=== PATIENT | male | born 1950 | race Caucasian/White ===

== ENCOUNTER 2022-12-05 18:52 | Emergency (ER) | payer MEDICARE ==
--- NOTE | 2022-12-05 19:03 | ERPHSYRPT ---
- History of Present Illness Time Seen by Provider: 12/05/22 19:02 Source: patient, family Exam Limitations: no limitations Physician History: This is a 72-year-old white male patient who is living with family members who have tested positive for COVID as recent as yesterday. He himself began having some symptoms yesterday of headache, cough, sore throat muscle aches and low- grade fever. He denies chest pain and he denies shortness of breath at this time. His room air oxygenation on arrival to the emergency department is 95%. Patient has a history of hyperlipidemia, coronary artery disease (cardiac stents) on Plavix, diabetes and hypertension. He has had no vomiting or diarrhea. He denies abdominal pain. Timing/Duration: yesterday Severity: mild (To moderate) Associated Symptoms: denies symptoms Allergies/Adverse Reactions: No Known Drug Allergies Allergy (Verified 12/05/22 19:14) Home Medications: Clopidogrel Bisulfate [Plavix] 75 mg PO DAILY 12/05/22 [History] Glipizide [Glipizide ER] 5 mg PO DAILY 12/05/22 [History] Metformin HCl 500 mg [Glucophage 500 MG] 500 mg PO BID 12/05/22 [History] Metoprolol Tartrate 50 mg [Lopressor 50 MG] 50 mg PO BID 12/05/22 [History] Rosuvastatin Calcium 40 mg PO DAILY 12/05/22 [History] Travel Risk - International Travel Have you traveled outside of the country in past 3 weeks: No - Coronavirus Screening Are you exhibiting any of the following symptoms?: No Close contact with a COVID-19 positive Pt in past 14-21 Days: No - Review of Systems Constitutional: Fever, Weakness (Low-grade) Eyes: No Symptoms Ears, Nose, & Throat: Throat Pain Respiratory: Cough Cardiac: No Symptoms Abdominal/Gastrointestinal: Nausea, No Abdominal Pain, No Vomiting, No Diarrhea Genitourinary Symptoms: No Symptoms Musculoskeletal: Arthralgias, Myalgias Neurological: Headache Psychological: No Symptoms Endocrine: No Symptoms Hematologic/Lymphatic: No Symptoms Immunological/Allergic: No Symptoms All Other Systems: Reviewed and Negative - Past Medical History Pertinent Past Medical History: Yes - Past Surgical History Past Surgical History: Yes - Nursing Vital Signs Nursing Vital Signs: Initial Vital Signs Temperature 99.2 F 12/05/22 19:15 Pulse Rate 96 H 12/05/22 19:15 Respiratory Rate 22 12/05/22 19:15 Blood Pressure 143/87 12/05/22 19:15 O2 Sat by Pulse Oximetry 93 L 12/05/22 19:15 Pain Scale Pain Intensity 9 - Physical Exam General Appearance: no apparent distress, alert, anxiety Eye Exam: PERRL/EOMI, eyes nml inspection Ears, Nose, Throat Exam: normal ENT inspection, moist mucous membranes Neck Exam: normal inspection, non-tender, supple, full range of motion Respiratory Exam: normal breath sounds, lungs clear, airway intact, No chest tenderness, No respiratory distress Cardiovascular Exam: regular rate/rhythm, normal heart sounds, normal peripheral pulses Gastrointestinal/Abdomen Exam: soft, normal bowel sounds, tenderness Rectal Exam: not done Back Exam: normal inspection, normal range of motion, No CVA tenderness, No vertebral tenderness Extremity Exam: normal inspection, normal range of motion, pelvis stable Neurologic Exam: alert, oriented x 3, 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, 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, normal mood/affect, nml cerebellar function, nml station & gait, sensation nml Skin Exam: normal color, warm, dry Lymphatic Exam: No adenopathy SpO2 Interpretation: borderline oxygenation O2 Delivery: Room Air - Course Nursing assessment & vital signs reviewed: Yes EKG Interpreted by Me: RATE (96), Sinus Rhythm, Left [place] Deviation, NORMAL INTERVALS, NORMAL QRS, NORMAL ST-T, Other (No acute ischemic changes on today's twelve-lead EKG) Ordered Tests: Active Orders 24 hr Category Date Time Status 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 12/05/22 19:12 Active EKG-ER Only STAT Care 12/05/22 19:18 Active IV Insertion STAT Care 12/05/22 19:12 Active HEAD WITHOUT CONTRAST [CT] Stat Exams 12/05/22 20:46 Taken BLOOD CULTURE Stat Lab 12/05/22 19:45 Received CBC W DIFF Stat Lab 12/05/22 19:49 Completed CMP Stat Lab 12/05/22 19:49 Completed [place] Screen Stat Lab 12/05/22 19:49 Completed UA W/RFX UR CULTURE Stat Lab 12/05/22 19:49 Completed Medication Summary Discontinued Medications Generic Name Dose Route Start Last Admin Trade Name Freq PRN Reason Stop Dose Admin Hydrocodone Bitart/Acetaminophen 10 ml 12/05/22 19:34 12/05/22 19:41 Hydrocodone/Acetaminophen 5 Ml Udcup PO 12/05/22 19:35 10 ml STAT STA Administration Hydrocodone Bitart/Acetaminophen Confirm 12/05/22 19:39 Hydrocodone/Acetaminophen 5 Ml Udcup Administered 12/05/22 19:40 Dose 10 ml .ROUTE .STK-MED ONE Sodium Chloride 1,000 mls @ 999 mls/hr 12/05/22 19:12 12/05/22 20:43 Sodium Chloride 0.9% 1000 Ml IV 12/05/22 20:12 Infused .Q1H1M STA Infusion Sodium Chloride Confirm 12/05/22 19:39 Sodium Chloride 0.9% 1000 Ml Administered 12/05/22 19:40 Dose 1,000 mls @ ud .ROUTE .STK-MED ONE Morphine Sulfate 2 mg 12/05/22 20:46 12/05/22 20:50 Morphine Sulfate 2 Mg/Ml Inj IV 12/05/22 20:47 2 mg STAT ONE Administration Morphine Sulfate Confirm 12/05/22 20:48 Morphine Sulfate 2 Mg/Ml Inj Administered 12/05/22 20:49 Dose 2 mg .ROUTE .STK-MED ONE Ondansetron HCl 4 mg 12/05/22 19:13 12/05/22 19:41 Ondansetron Hcl 4 Mg/2 Ml Vial IV 12/05/22 19:14 4 mg STAT ONE Administration Ondansetron HCl Confirm 12/05/22 19:39 Ondansetron Hcl 4 Mg/2 Ml Vial Administered 12/05/22 19:40 Dose 4 mg .ROUTE .STK-MED ONE Lab/Rad Data: Laboratory Result Diagrams 12/05/22 19:49 12/05/22 19:49 Laboratory Results 12/05/22 12/05/22 12/05/22 Range/Units 19:49 19:49 19:49 WBC (4.0-10.5) x10^3/uL RBC (4.1-5.6) x10^6/uL Hgb (12.5-18.0) g/dL Hct (42-50) % MCV (78-100) fL MCH (26-32) pg MCHC (32-36) g/dL RDW (11.5-14.0) % Plt Count (150-450) x10^3/uL MPV (7.5-11.0) fL Gran % (36.0-66.0) % Immature Gran % (Auto) (0.00-0.4) % Nucleat RBC Rel Count (0.00-0.1) % Eos # (Auto) (0-0.5) x10^3/uL Immature Gran # (Auto) (0.00-0.03) x10^3u/L Absolute Lymphs (auto) (1.0-4.6) x10^3/uL Absolute Monos (auto) (0.0-1.3) x10^3/uL Absolute Nucleated RBC (0.00-0.01) x10^3u/L Lymphocytes % (24.0-44.0) % Monocytes % (0.0-12.0) % Eosinophils % (0.00-5.0) % Basophils % (0.0-0.4) % Absolute Granulocytes (1.4-6.9) x10^3/uL Basophils # (0-0.4) x10^3/uL Sodium (137-145) mmol/L Potassium (3.5-5.1) mmol/L Chloride (98-107) mmol/L Carbon Dioxide (22-30) mmol/L Anion Gap (5-15) MEQ/L BUN (9-20) mg/dL Creatinine (0.66-1.25) mg/dL Estimated GFR ML/MIN Glucose (74-106) mg/dL Calcium (8.4-10.2) mg/dL Total Bilirubin (0.2-1.3) mg/dL AST (17-59) U/L ALT (0-50) U/L Alkaline Phosphatase (38-126) U/L Serum Total Protein (6.3-8.2) g/dL Albumin (3.5-5.0) g/dL Urine Color (Yellow) Urine Appearance (Clear) Urine pH (4.6-8.0) Ur Specific [place] (1.005-1.030) Urine Protein (Negative) Urine Glucose (UA) (Negative) mg/dL Urine Ketones (Negative) Urine Blood (Negative) Urine Nitrite (Negative) Urine Bilirubin (Negative) Urine Urobilinogen (0.2) mg/dL Ur Leukocyte Esterase (Negative) U Hyaline Cast (Auto) (0-2) /LPF Urine Microscopic RBC (0-5) /HPF Urine Microscopic WBC (0-5) /HPF Ur Epithelial Cells (None Seen) /HPF Urine Bacteria (None Seen) /HPF Urine Culture Reflexed (NO) Monoscreen NEGATIVE (Negative) Influenza Type A Ag NEGATIVE (NEGATIVE) Influenza Type B Ag NEGATIVE (NEGATIVE) RSV (PCR) NEGATIVE (Negative) SARS-CoV-2 (PCR) POSITIVE A (NEGATIVE) Group A Strep Antibody NOT DETECTED (NEGATIVE) 12/05/22 12/05/22 12/05/22 Range/Units 19:49 19:49 19:49 WBC 8.1 (4.0-10.5) x10^3/uL RBC 4.54 (4.1-5.6) x10^6/uL Hgb 13.6 (12.5-18.0) g/dL Hct 42.9 (42-50) % MCV 94.5 (78-100) fL MCH 30.0 (26-32) pg MCHC 31.7 L (32-36) g/dL RDW 13.1 (11.5-14.0) % Plt Count 182 (150-450) x10^3/uL MPV 9.7 (7.5-11.0) fL Gran % 67.7 H (36.0-66.0) % Immature Gran % (Auto) 0.2 (0.00-0.4) % Nucleat RBC Rel Count 0.0 (0.00-0.1) % Eos # (Auto) 0.07 (0-0.5) x10^3/uL Immature Gran # (Auto) 0.02 (0.00-0.03) x10^3u/L Absolute Lymphs (auto) 1.38 (1.0-4.6) x10^3/uL Absolute Monos (auto) 1.10 (0.0-1.3) x10^3/uL Absolute Nucleated RBC 0.00 (0.00-0.01) x10^3u/L Lymphocytes % 17.1 L (24.0-44.0) % Monocytes % 13.6 H (0.0-12.0) % Eosinophils % 0.9 (0.00-5.0) % Basophils % 0.5 (0.0-0.4) % Absolute Granulocytes 5.47 (1.4-6.9) x10^3/uL Basophils # 0.04 (0-0.4) x10^3/uL Sodium 139 (137-145) mmol/L Potassium 4.5 (3.5-5.1) mmol/L Chloride 107 (98-107) mmol/L Carbon Dioxide 22 (22-30) mmol/L Anion Gap 14.4 (5-15) MEQ/L BUN 9 (9-20) mg/dL Creatinine 0.93 (0.66-1.25) mg/dL Estimated GFR > 60.0 ML/MIN Glucose 126 H (74-106) mg/dL Calcium 8.8 (8.4-10.2) mg/dL Total Bilirubin 0.50 (0.2-1.3) mg/dL AST 45 (17-59) U/L ALT 39 (0-50) U/L Alkaline Phosphatase 71 (38-126) U/L Serum Total Protein 7.4 (6.3-8.2) g/dL Albumin 4.1 (3.5-5.0) g/dL Urine Color Yellow (Yellow) Urine Appearance Clear (Clear) Urine pH 5.0 (4.6-8.0) Ur Specific [place] 1.020 (1.005-1.030) Urine Protein Trace A (Negative) Urine Glucose (UA) Negative (Negative) mg/dL Urine Ketones Negative (Negative) Urine Blood Negative (Negative) Urine Nitrite Negative (Negative) Urine Bilirubin Negative (Negative) Urine Urobilinogen 0.2 (0.2) mg/dL Ur Leukocyte Esterase Negative (Negative) U Hyaline Cast (Auto) NONE SEEN (0-2) /LPF Urine Microscopic RBC 0-2 (0-5) /HPF Urine Microscopic WBC 0-2 (0-5) /HPF Ur Epithelial Cells None Seen (None Seen) /HPF Urine Bacteria None Seen (None Seen) /HPF Urine Culture Reflexed NO (NO) Monoscreen (Negative) Influenza Type A Ag (NEGATIVE) Influenza Type B Ag (NEGATIVE) RSV (PCR) (Negative) SARS-CoV-2 (PCR) (NEGATIVE) Group A Strep Antibody (NEGATIVE) - Progress Progress: improved Progress Note: 12/05/22 21:48 CT scan of the head without contrast shows no acute intracranial abnormality. This patient's medical issues of moderate complexity. This is based on the patient's complaint, past medical history, review of patient's medicines, history present illness, and physical findings on examination. Based on that we performed blood draws, viral swabs, obtain a urinalysis, provided him with IV fluids, obtaining twelve-lead EKG and performed a CT scan of the patient's head. Patient's diagnosis is headache and COVID-19 infection. I reviewed all the results with the patient and discharge plan includes drinking plenty of fluids, taking hydrocodone elixir as needed for headache and cough control. Counseled pt/family regarding: lab results, diagnosis, need for follow-up, rad results Medical Desision Making - Independent Historian Additional History obtained from: Family - Discussion of managment Reviewed:: Test results Agreed on:: Treatment plan, need for follow-up - Diagnostic Testing Diagnostic test were ordered, analyzed, and reviewed by me: Yes Radiological Interpretation: Reviewed by me, Teleradiologist Report - Risk of complications Low Risk: Low risk of morbidity from additional dx testing or treatment - Departure Departure Disposition: Home Clinical Impression: COVID-19, Headache Condition: Stable Critical Care Time: No Referrals: ANTONIA JANE MD [Primary Care Provider] - Follow up/PCP as directed Additional Instructions: Drink plenty fluids. Take your medications as prescribed. Follow-up with your primary care physician for further evaluation and management in 7 to 10 days. Return to the emergency department if symptoms worsen. Prescriptions: Hydrocodone/Acetaminophen [Hydrocodone-Acetamn 7.5-325/15] 10 ml PO Q8H PRN PRN #120 ml MDD 30 ml PRN Reason: Cough
[2022-12-05] MEDS ORDERED: Sodium Chloride 0.9% 1000 ML 1,000 ML IV STA (19:12)
[2022-12-05] MEDS ORDERED: Zofran 4 MG/2 ML VIAL IV ONE (19:13)
[2022-12-05] MEDS ORDERED: HYDROCODONE-ACETAMIN 2.5-108/5 ML SOLUTION PO STA (19:34)
[2022-12-05] MEDS ORDERED: Zofran 4 MG/2 ML VIAL ONE (19:39)
[2022-12-05] MEDS ORDERED: Sodium Chloride 0.9% 1000 ML 1,000 ML ONE (19:39)
[2022-12-05] MEDS ORDERED: HYDROCODONE-ACETAMIN 2.5-108/5 ML SOLUTION ONE (19:39)
[2022-12-05 19:52] LABS: Absolute Neutrophil Ct (ANC) 5.47 x10^3/uL (1.4-6.9); BASOPHIL % 0.5 % (0.0-0.4); Basophil (Absolute #) 0.04 x10^3/uL (0-0.4); Eosinophil % 0.9 % (0.00-5.0); Eosinophil (Absolute #) 0.07 x10^3/uL (0-0.5); Hematocrit 42.9 % (42-50); Hemoglobin 13.6 g/dL (12.5-18.0); IMMATURE GRAN # 0.02 x10^3u/L (0.00-0.03); IMMATURE GRAN % 0.2 % (0.00-0.4); Lymphocyte (Absolute #) 1.38 x10^3/uL (1.0-4.6); Lymphocytes % 17.1 % (24.0-44.0); Mean Cell Volume 94.5 fL (78-100); Mean Corpuscular Hgb Concent. 31.7 g/dL (32-36); Mean Platelet Volume 9.7 fL (7.5-11.0); Monocytes % 13.6 % (0.0-12.0); Neutrophil % 67.7 % (36.0-66.0); Platelet Count 182 x10^3/uL (150-450); Red Blood Count 4.54 x10^6/uL (4.1-5.6); Red Cell Distribution Width 13.1 % (11.5-14.0); White Blood Count 8.1 x10^3/uL (4.0-10.5)
[2022-12-05 19:59] LABS: Appearance Clear (Clear); Bacteria None Seen /HPF (None Seen); Bilirubin Negative (Negative); Blood Negative (Negative); Epithelial Cells None Seen /HPF (None Seen); Glucose, Urine Negative (Negative); Hyaline Casts NONE SEEN /LPF (0-2); Ketones Negative (Negative); Leukocyte Esterase Negative (Negative); Nitrite Negative (Negative); Protein,Urine Dip Trace (Negative); RBC 0-2 /HPF (0-5); Urobilinogen 0.2 mg/dL (0.2); WBC 0-2 /HPF (0-5)
[2022-12-05 20:00] LABS: ADD URINE CULTURE? NO (NO)
[2022-12-05 20:03] LABS: ALBUMIN 4.1 g/dL (3.5-5.0); ALKALINE PHOSPHATASE 71 U/L (38-126); ANION GAP 14.4 MEQ/L (5-15); BLOOD UREA NITROGEN 9 mg/dL (9-20); CHLORIDE 107 mmol/L (98-107); Calcium 8.8 mg/dL (8.4-10.2); Carbon Dioxide 22 mmol/L (22-30); Creatinine 1 0.93 mg/dL (0.66-1.25); EST GLOMERULAR FILTRATION RATE > 60.0 ML/MIN; Glucose 126 mg/dL (74-106); Potassium 4.5 mmol/L (3.5-5.1); SGOT/AST 45 U/L (17-59); SGPT/ALT 39 U/L (0-50); SODIUM 139 mmol/L (137-145); Total Protein 7.4 g/dL (6.3-8.2)
[2022-12-05 20:30] LABS: INFLUENZA A NEGATIVE (NEGATIVE); INFLUENZA B NEGATIVE (NEGATIVE); RESPIRATORY SYNCTIAL VIRUS NEGATIVE (Negative)
[2022-12-05 20:34] LABS: SARS-CoV-2 Xpert Express POSITIVE (NEGATIVE)
[2022-12-05] MEDS ORDERED: MORPHINE SULFATE 2 MG INJ IV ONE (20:46)
[2022-12-05] MEDS ORDERED: MORPHINE SULFATE 2 MG INJ ONE (20:48)
[2022-12-05 21:14] VITALS: BP 134/89; PULSE 80; O2SAT 95
--- NOTE | 2022-12-06 08:01 | XRAY ---
Indication: Headache. Multiple contiguous axial images obtained through the head without contrast. Comparison: None Age-appropriate global atrophy. No acute intracranial hemorrhage, abnormal extra-axial fluid collection, or mass effect. Fourth ventricle is midline without hydrocephalus. Katz-white matter differentiation preserved. Bony calvarium intact. Mild mucosal thickening both ethmoid sinuses. Mastoid air cells are clear. Impression: Minimal paranasal sinus disease. Remaining CT head without contrast exam is negative. Comment: Preliminary interpretation made by [facility]. No critical discrepancy.
== END 2022-12-05 22:05 | disposition home or self-care (01) ==
LOC: ED 18:52
DX: U07.1 COVID-19 (principal); R51.9 Headache, unspecified; R05.1 Acute cough; J02.9 Acute pharyngitis, unspecified; M79.10 Myalgia, unspecified site; R50.9 Fever, unspecified; E78.5 Hyperlipidemia, unspecified; E11.9 Type 2 diabetes mellitus without complications; I10 Essential (primary) hypertension; Z79.02 Long term (current) use of antithrombotics/antiplatelets; Z79.84 Long term (current) use of oral hypoglycemic drugs; Z79.891 Long term (current) use of opiate analgesic; Z79.899 Other long term (current) drug therapy
CPT/HCPCS: 0241U; 36000; 36415; 70450; 80053; 81001; 85025; 86308; 87040; 87651; 93005; 93041; 96360; 96374; 96375; 99284; J2270; J2405; A9270-GY

== ENCOUNTER 2023-02-03 01:21 | Emergency (ER) | payer MEDICARE ==
[2023-02-03 01:38] VITALS: O2SAT 95
[2023-02-03] MEDS ORDERED: TORAdol 30 mg Injection IM ONE (01:45)
[2023-02-03] MEDS ORDERED: TORAdol 30 mg Injection ONE (01:47)
--- NOTE | 2023-02-03 02:09 | ERPHSYRPT ---
- History of Present Illness Historian: patient Exam Limitations: no limitations Patient Subjective Stated Complaint: pt states he began having lt lower abd pain yesterday. pain went aw2aya nd came back tonight. states he has frequent kidney stones and this feels like one Triage Nursing Assessment: pt alert and oriented, answers questions approp. pt ambulates into room with steady gait noted. respirations nonlabored with lungs cta. skin warm and dry. abd soft and nontender to light palpation. bowelsounds present x4 quads. Physician History: 73 yo WM w L inguinal pain since 2129. Pain is a 10 and sharp. He states that it feels like a kidney stone. Pt has had nausea/mild dysuria/hematuria. He denies fever/diarrhea/melena/hematochezia/chest pain/dyspnea. Timing/Duration: other (2129) Activities at Onset: rest Quality: sharpness Abdominal Pain Onset Location: LLQ Pain Radiation: no radiation Severity of Pain-Max: severe Severity of Pain-Current: severe Modifying Factors: Improves With: nothing Associated Symptoms: denies symptoms, nausea Previous symptoms: same symptoms as today Allergies/Adverse Reactions: No Known Drug Allergies Allergy (Verified 02/03/23 01:38) Home Medications: Clopidogrel Bisulfate [Plavix] 75 mg PO DAILY 12/05/22 [History] Glipizide [Glipizide ER] 5 mg PO DAILY 12/05/22 [History] Metformin HCl 500 mg [Glucophage 500 MG] 500 mg PO BID 12/05/22 [History] Metoprolol Tartrate 50 mg [Lopressor 50 MG] 50 mg PO BID 12/05/22 [History] Rosuvastatin Calcium 40 mg PO DAILY 12/05/22 [History] Hx Tetanus, Diphtheria Vaccination/Date Given: Yes Hx Influenza Vaccination/Date Given: Yes Hx Pneumococcal Vaccination/Date Given: Yes Travel Risk - International Travel Have you traveled outside of the country in past 3 weeks: No - Coronavirus Screening Are you exhibiting any of the following symptoms?: No Close contact with a COVID-19 positive Pt in past 14-21 Days: No - Vaccine Status Have you recieved a Covid-19 vaccination: Yes 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: [employer] - Vaccination Dates Date of 2cond Vaccination (if applicable): 2019 - Review of Systems Constitutional: No Symptoms Eyes: No Symptoms Ears, Nose, & Throat: No Symptoms Respiratory: No Symptoms Cardiac: No Symptoms Abdominal/Gastrointestinal: No Symptoms, Abdominal Pain Genitourinary Symptoms: No Symptoms, Dysuria, Hematuria Musculoskeletal: No Symptoms Skin: No Symptoms Neurological: No Symptoms Psychological: No Symptoms Endocrine: No Symptoms Hematologic/Lymphatic: No Symptoms Immunological/Allergic: No Symptoms - Past Medical History Pertinent Past Medical History: Yes Neurological History: No Pertinent History ENT History: Cataracts Cardiac History: High Cholesterol, Hypertension Respiratory History: No Pertinent History Endocrine Medical History: Diabetes Type II Musculoskeletal History: No Pertinent History GI Medical History: Hernia History: No Pertinent History Psycho-Social History: No Pertinent History Male Reproductive Disorders: Other Other Medical History: previous skin cancer - Past Surgical History Past Surgical History: Yes Neuro Surgical History: No Pertinent History Cardiac: Cardiac Stent Respiratory: No Pertinent History Gastrointestinal: Hernia Repair Genitourinary: Other Musculoskeletal: Orthopedic Surgery Male Surgical History: No Pertinent History - Social History Smoking Status: Former smoker Exposure to second hand smoke: No Drug Use: none Patient Lives Alone: No - Nursing Vital Signs Nursing Vital Signs: Initial Vital Signs Temperature 97.3 F 02/03/23 01:28 Pulse Rate 79 02/03/23 01:28 Respiratory Rate 18 02/03/23 01:28 Blood Pressure 164/104 02/03/23 01:28 O2 Sat by Pulse Oximetry 95 02/03/23 01:28 Pain Scale Pain Intensity 8 Hypertension - Physical Exam General Appearance: no apparent distress Eye Exam: PERRL/EOMI, eyes nml inspection Ears, Nose, Throat Exam: normal ENT inspection, TMs normal, pharynx normal, moist mucous membranes Neck Exam: normal inspection, non-tender, supple, full range of motion, No meni ngismus, No mass, No Brudzinski, No Kernig's, No carotid bruit Respiratory Exam: normal breath sounds, lungs clear, airway intact Cardiovascular Exam: regular rate/rhythm, normal heart sounds, normal peripheral pulses, capillary refill <2 sec, No murmur Gastrointestinal/Abdomen Exam: soft, normal bowel sounds, No tenderness Back Exam: normal inspection, normal range of motion, No CVA tenderness, No vertebral tenderness Extremity Exam: normal inspection, normal range of motion Neurologic Exam: alert, oriented x 3, cooperative, 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, normal mood/affect, nml cerebellar function, nml station & gait, sensation nml Skin Exam: normal color, warm, dry Lymphatic Exam: No adenopathy SpO2 Interpretation: normal SpO2: 95 O2 Delivery: Room Air - Course Nursing assessment & vital signs reviewed: Yes - CT Exams Abdomen/Pelvis CT Interpretation: Tele-radiologist Report (5.2mm distal L ureteral stone w mild hydro) Ordered Tests: Active Orders 24 hr Category Date Time Status ABDOMEN AND PELVIS W/0 CONTRAS [CT] Stat Exams 02/03/23 01:45 Completed CULTURE,URINE Stat Lab 02/03/23 01:51 Received UA W/RFX UR CULTURE Stat Lab 02/03/23 01:51 Completed Medication Summary Discontinued Medications Generic Name Dose Route Start Last Admin Trade Name Freq PRN Reason Stop Dose Admin Hydrocodone Bitart/Acetaminophen 1 tablet 02/03/23 02:51 02/03/23 02:53 Hydrocodone/Acetamin 10-325 Mg Tablet PO 02/03/23 02:52 1 tablet STAT ONE Administration Hydrocodone Bitart/Acetaminophen Confirm 02/03/23 02:52 Hydrocodone/Acetamin 10-325 Mg Tablet Administered 02/03/23 02:53 Dose 1 tablet .ROUTE .STK-MED ONE Hydrocodone Bitart/Acetaminophen 2 tab 02/03/23 03:07 02/03/23 03:11 Hydrocodone/Apap 5/325 1 Tab Tablet PO 02/03/23 03:08 2 tab SENT HOME W/ PATIENT ONE Administration Hydrocodone Bitart/Acetaminophen Confirm 02/03/23 03:10 Hydrocodone/Apap 5/325 1 Tab Tablet Administered 02/03/23 03:11 Dose 2 tab .ROUTE .STK-MED ONE Ketorolac Tromethamine 30 mg 02/03/23 01:45 02/03/23 01:52 Ketorolac Tromethamine 30 Mg/Ml Inj IM 02/03/23 01:46 30 mg STAT ONE Administration Ketorolac Tromethamine Confirm 02/03/23 01:47 Ketorolac Tromethamine 30 Mg/Ml Inj Administered 02/03/23 01:48 Dose 30 mg .ROUTE .STK-MED ONE Lab/Rad Data: Laboratory Results 02/03/23 Range/Units 01:51 Urine Color Yellow (Yellow) Urine Appearance Cloudy A (Clear) Urine pH 5.0 (4.6-8.0) Ur Specific [place] 1.025 (1.005-1.030) Urine Protein Trace A (Negative) Urine Glucose (UA) Negative (Negative) mg/dL Urine Ketones Negative (Negative) Urine Blood Large A (Negative) Urine Nitrite Negative (Negative) Urine Bilirubin Negative (Negative) Urine Urobilinogen 1.0 A (0.2) mg/dL Ur Leukocyte Esterase Negative (Negative) U Hyaline Cast (Auto) NONE SEEN (0-2) /LPF Urine Microscopic RBC >100 A (0-5) /HPF Urine Microscopic WBC 0-2 (0-5) /HPF Ur Epithelial Cells None Seen (None Seen) /HPF Urine Bacteria None Seen (None Seen) /HPF Urine Culture Reflexed YES (NO) - Progress Progress: improved Progress Note: 02/03/23 02:29 Nursing note and vital signs reviewed No food or housing insecurities noted Pain improved after 30mg IM Toradol Norco10 po x1 Pt to f/u w his urologist in [place] Additional history per Grandson 02/03/23 03:13 02/03/23 03:18 02/03/23 03:18 Counseled pt/family regarding: lab results, diagnosis, need for follow-up, rad results Medical Desision Making - Diagnostic Testing Diagnostic test were ordered, analyzed, and reviewed by me: Yes Radiological Interpretation: Teleradiologist Report - Risk of complications The pt has a mod risk of morbidity or mortality based on: Need for prescription drug management - Departure Departure Disposition: Home Clinical Impression: Ureterolithiasis Condition: Stable Critical Care Time: No Referrals: ANTONIA JANE MD [Primary Care Provider] - Follow up/PCP as directed Instructions: Kidney Stones (DC) Additional Instructions: Strain all urine Pain meds as needed(Use a stool softener w pain meds) Follow up with a urologist Return to ER for increasing pain or temperature greater [id number] Prescriptions: Hydrocodone/Acetaminophen [Hydrocodone-Acetamin 5-325 mg] 1 each PO Q4HPRN PRN #6 tablet MDD 4 tabs PRN Reason: Pain
[2023-02-03 02:10] LABS: Appearance Cloudy (Clear); Bacteria None Seen /HPF (None Seen); Bilirubin Negative (Negative); Blood Large (Negative); Epithelial Cells None Seen /HPF (None Seen); Glucose, Urine Negative (Negative); Hyaline Casts NONE SEEN /LPF (0-2); Ketones Negative (Negative); Leukocyte Esterase Negative (Negative); Nitrite Negative (Negative); Protein,Urine Dip Trace (Negative); RBC >100 /HPF (0-5); Specific Gravity 1.025 (1.005-1.030); WBC 0-2 /HPF (0-5)
[2023-02-03 02:11] LABS: ADD URINE CULTURE? YES (NO)
[2023-02-03] MEDS ORDERED: HYDROCODONE-ACETAMIN 10-325 MG PO ONE (02:51)
[2023-02-03] MEDS ORDERED: HYDROCODONE-ACETAMIN 10-325 MG ONE (02:52)
--- NOTE | 2023-02-03 02:56 | XRAY ---
CLINICAL HISTORY:L inguinal pain; COMPARISON:None; TECHNIQUES:CT scan of the abdomen and pelvis was performed without contrast. Coronal and sagittal reconstructive images were also obtained; FINDINGS: Abdomen: The liver is of average size. No focal or diffuse parenchymal abnormality. The portal vein, intrahepatic biliary radicals, and bile ducts are normal. The spleen, pancreas, and adrenal glands are unremarkable. The kidneys show few focal areas of cortical scarring with bilateral perinephric fat stranding. A few small 4-5mm calculi are seen in the right kidney in the middle and upper calyces, at least 3 in number, however, no evidence of hydronephrosis in the right kidney. A few 2-3 mm calculi are seen in the left kidney, at least 5 in number. The left ureter is dilated and shows a 5.2 mm calculus in its distal part. Mild dilatation of the left renal pelvis was seen. The gallbladder is distended. There is no evidence of wall thickening/ pericholecystic collection. The ascending colon, the transverse colon, and the descending colon visualized small bowel loops are unremarkable. There is no evidence of significant enlargement of the mesenteric or retroperitoneal lymph nodes. The abdominal aorta shows atherosclerotic changes with calcified plaques. Pelvis: The urinary bladder is unremarkable. The rectosigmoid colon is unremarkable. Postoperative changes were seen in the prostatic region. No evidence of pelvic lymphadenopathy. The lumbar spine shows degenerative changes. IMPRESSION: Left distal ureteric calculus with mild hydroureteronephrosis. Bilateral renal calculi. The suggestion of bilateral renal parenchymal disease. Electronically Signed by: Romario Joy MD. (02/03/2023 01:50:17 UTILIZATION MANAGEMENT UM NURSE)
[2023-02-03] MEDS ORDERED: NORCO 5/325 MG PO ONE (03:07)
[2023-02-03] MEDS ORDERED: NORCO 5/325 MG ONE (03:10)
[2023-02-03 03:21] VITALS: BP 164/93; PULSE 65
== END 2023-02-03 03:26 | disposition home or self-care (01) ==
LOC: ED 01:21
DX: N13.2 Hydronephrosis with renal and ureteral calculous obstruction (principal); R10.2 Pelvic and perineal pain; R11.0 Nausea; R30.0 Dysuria; R31.9 Hematuria, unspecified; E78.5 Hyperlipidemia, unspecified; I10 Essential (primary) hypertension; E11.9 Type 2 diabetes mellitus without complications; Z79.02 Long term (current) use of antithrombotics/antiplatelets; Z79.84 Long term (current) use of oral hypoglycemic drugs; Z79.899 Other long term (current) drug therapy
CPT/HCPCS: 74176; 81001; 87086; 96372; 99283; J1885; A9270-GY

== ENCOUNTER 2025-01-07 00:17 | Emergency (ER) | payer MEDICARE ==
[2025-01-07 00:35] VITALS: TEMP 97
--- NOTE | 2025-01-07 00:47 | ERPHSYRPT ---
- History of Present Illness Time Seen by Provider: 01/07/25 00:47 Historian: patient Exam Limitations: no limitations Patient Subjective Stated Complaint: "I think I have a kidney stone, I have pain in my side and back. I can't hardly pee". Triage Nursing Assessment: Pt presents to ER with RLQ abdominal pain that radiates to right flank. This pain began yesterday and worsened through the night. Pt complains of dull constant ache. Feels as if it's a kidney stone. Hx of kidney stones. Pt appears in pain and is tender upon exam. Pt is alert and oriented x 3. Skin is pink, warm, and dry. Respirations are easy. Has had dry heaves. Appears in pain. Rates pain 10/10 scale. Physician History: Pt presents with severe right groin pain. Onset earlier today, progressively worsening. Pain localized to the right groin without radiation to the back. Exacerbated by movement. Reports dysuria and decreased urine output. Pt has a history of kidney stones. Timing/Duration: today Activities at Onset: rest Quality: sharpness, stabbing Abdominal Pain Onset Location: RLQ, flank Pain Radiation: groin Severity of Pain-Max: severe Severity of Pain-Current: severe Modifying Factors: Worsens With: palpation, urinating Associated Symptoms: back, No loss of appetite, No nausea, No testicular pain, No vomiting Previous symptoms: same symptoms as today Allergies/Adverse Reactions: No Known Drug Allergies Allergy (Verified 01/07/25 00:25) Home Medications: Clopidogrel Bisulfate [Plavix] 75 mg PO DAILY 12/05/22 [History] Metformin HCl 500 mg [Glucophage 500 MG] 500 mg PO BID 12/05/22 [History] Metoprolol Tartrate 50 mg [Lopressor 50 MG] 120 mg PO BID 12/05/22 [History] Rosuvastatin Calcium 40 mg PO DAILY 12/05/22 [History] glipiZIDE [Glipizide ER] 5 mg PO DAILY 12/05/22 [History] ALPRAZolam 0.25 MG [xanAX 0.25 MG] 0.5 mg PO Q6HPRN PRN 01/07/25 [History] Allopurinol 100 mg [Zyloprim 100 mg] 100 mg PO DAILY 01/07/25 [History] Ergocalciferol (Vitamin D2) [Vitamin D2] 50,000 unit PO Q7D 01/07/25 [History] Silodosin 8 mg PO DAILY 01/07/25 [History] Hx Tetanus, Diphtheria Vaccination/Date Given: Yes Hx Influenza Vaccination/Date Given: Yes Hx Pneumococcal Vaccination/Date Given: Yes Immunizations Up to Date: No Travel Risk - International Travel Have you traveled outside of the country in past 3 weeks: No - Emerging Infectious Disease Are you exhibiting symptoms associated with any current EIDs: No - Review of Systems All Other Systems: Reviewed and Negative - Past Medical History Pertinent Past Medical History: Yes Neurological History: No Pertinent History ENT History: Cataracts Cardiac History: Coronary Artery Disease, High Cholesterol, Hypertension Respiratory History: No Pertinent History Endocrine Medical History: Diabetes Type II Musculoskeletal History: No Pertinent History GI Medical History: Hernia History: Other Psycho-Social History: No Pertinent History Male Reproductive Disorders: Other Other Medical History: previous skin cancer, kidney stones - Past Surgical History Past Surgical History: Yes Neuro Surgical History: No Pertinent History Cardiac: Cardiac Catheterization, Cardiac Stent Respiratory: No Pertinent History Gastrointestinal: Hernia Repair Genitourinary: Other Musculoskeletal: Orthopedic Surgery Male Surgical History: No Pertinent History - Social History Smoking Status: Never smoker Exposure to second hand smoke: No Drug Use: none - Social Determinants of Health Will the patient participate in the screening: Yes Do you worry about a steady place to live?: No Do you have any problems with any of the following?: No known problems In the past 12 months,have you had to go without utilities?: No Transportation Issues: No Has anyone in your support network made you feel unsafe?: No Have you or anyone in your house had to go w/o enough food: No - Nursing Vital Signs Nursing Vital Signs: Initial Vital Signs Temperature 97.0 F 01/07/25 00:29 Pulse Rate 97 H 01/07/25 00:29 Respiratory Rate 18 01/07/25 00:29 Blood Pressure 158/105 01/07/25 00:29 O2 Sat by Pulse Oximetry 98 01/07/25 00:29 Pain Scale Pain Intensity 3 - Physical Exam General Appearance: no apparent distress Eye Exam: eyes nml inspection Ears, Nose, Throat Exam: normal ENT inspection Neck Exam: normal inspection, supple, full range of motion Respiratory Exam: normal breath sounds, lungs clear, airway intact, No respiratory distress Cardiovascular Exam: regular rate/rhythm, normal heart sounds, capillary refill <2 sec Gastrointestinal/Abdomen Exam: soft, normal bowel sounds, tenderness (RLQ), No guarding, No rebound Back Exam: No CVA tenderness Neurologic Exam: alert, oriented x 3, cooperative Skin Exam: normal color, warm, dry SpO2 Interpretation: normal SpO2: 98 O2 Delivery: Room Air - Course Nursing assessment & vital signs reviewed: Yes Ordered Tests: Active Orders 24 hr Category Date Time Status IV Insertion STAT Care 01/07/25 00:40 Active ABDOMEN AND PELVIS W/0 CONTRAS [CT] Stat Exams 01/07/25 00:58 Completed CBC W DIFF Stat Lab 01/07/25 01:20 Completed CMP Stat Lab 01/07/25 01:20 Completed UA W/RFX UR CULTURE Stat Lab 01/07/25 01:17 Completed Medication Summary Discontinued Medications Generic Name Dose Route Start Last Admin Trade Name Freq PRN Reason Stop Dose Admin Sodium Chloride 1,000 mls @ 999 mls/hr 01/07/25 00:58 01/07/25 02:04 Sodium Chloride 0.9% 1000 Ml IV 01/07/25 01:58 Infused .Q1H1M STA Infusion Sodium Chloride Confirm 01/07/25 01:01 Sodium Chloride 0.9% 1000 Ml Administered 01/07/25 01:02 Dose 1,000 mls @ ud .ROUTE .STK-MED ONE Ketorolac Tromethamine 30 mg 01/07/25 00:40 01/07/25 01:04 Ketorolac Tromethamine 30 Mg/Ml Inj IV 01/07/25 00:41 30 mg STAT STA Administration Ketorolac Tromethamine Confirm 01/07/25 01:01 Ketorolac Tromethamine 30 Mg/Ml Inj Administered 01/07/25 01:02 Dose 30 mg .ROUTE .STK-MED ONE Tamsulosin HCl 0.4 mg 01/07/25 00:40 01/07/25 01:03 Tamsulosin Hcl 0.4 Mg Cap PO 01/07/25 00:41 0.4 mg DAILY STA Administration Tamsulosin HCl Confirm 01/07/25 01:01 Tamsulosin Hcl 0.4 Mg Cap Administered 01/07/25 01:02 Dose 0.4 mg .ROUTE .STK-MED ONE Lab/Rad Data: Laboratory Result Diagrams 01/07/25 01:20 01/07/25 01:20 Laboratory Results 01/07/25 01/07/25 01/07/25 Range/Units 01:20 01:20 01:17 WBC 8.7 (4.23-9.07) x10^3/uL RBC 4.26 L (4.63-6.08) x10^6/uL Hgb 13.0 L (13.7-17.5) g/dL Hct 40.3 (40.1-51.0) % MCV 94.6 H (79.0-92.2) fL MCH 30.5 (25.7-32.2) pg MCHC 32.3 (32.3-36.5) g/dL RDW 13.3 (11.6-14.4) % Plt Count 168 (163-337) x10^3/uL MPV 10.7 (9.4-12.4) fL Gran % 78.3 H (34.0-67.9) % Immature Gran % (Auto) 0.3 (0.001-0.429) % Nucleat RBC Rel Count 0.0 (0.00-0.2) % Eos # (Auto) 0.01 L (0.04-0.54) x10^3/uL Immature Gran # (Auto) 0.03 (0.001-0.031) x10^3u/L Absolute Lymphs (auto) 1.28 L (1.32-3.57) x10^3/uL Absolute Monos (auto) 0.54 (0.30-0.82) x10^3/uL Absolute Nucleated RBC 0.00 (0.00-0.012) x10^3u/L Lymphocytes % 14.8 L (21.8-53.1) % Monocytes % 6.2 (5.3-12.2) % Eosinophils % 0.1 L (0.8-7.0) % Basophils % 0.3 (0.2-1.2) % Absolute Granulocytes 6.77 H (1.78-5.38) x10^3/uL Basophils # 0.03 (0.01-0.08) x10^3/uL Sodium 140 (135-145) mmol/L Potassium 4.9 (3.5-5.1) mmol/L Chloride 104 (98-107) mmol/L Carbon Dioxide 23 (22-30) mmol/L Anion Gap 17.0 H (5-15) MEQ/L BUN 16 (9-20) mg/dL Creatinine 1.01 (0.66-1.25) mg/dL Estimated GFR 77.1 ML/MIN Glucose 175 H (74-106) mg/dL Calcium 8.8 (8.4-10.2) mg/dL Total Bilirubin 0.90 (0.2-1.3) mg/dL AST 39 (17-59) U/L ALT 44 (0-50) U/L Alkaline Phosphatase 65 (38-126) U/L Serum Total Protein 7.1 (6.3-8.2) g/dL Albumin 4.3 (3.5-5.0) g/dL Urine Color Yellow (Yellow) Urine Appearance Clear (Clear) Urine pH 6.0 (4.6-8.0) Ur Specific Mineral 1.020 (1.005-1.030) Urine Protein Trace A (Negative) Urine Glucose (UA) Negative (Negative) mg/dL Urine Ketones 15 A (Negative) Urine Blood NHT (Negative) Urine Nitrite Negative (Negative) Urine Bilirubin Negative (Negative) Urine Urobilinogen 1.0 A (0.2) mg/dL Ur Leukocyte Esterase Negative (Negative) U Hyaline Cast (Auto) NONE SEEN (0-2) /LPF Urine Microscopic RBC 3-5 (0-5) /HPF Urine Microscopic WBC 0-2 (0-5) /HPF Ur Epithelial Cells None Seen (None Seen) /HPF Urine Bacteria None Seen (None Seen) /HPF Urine Culture Reflexed NO (NO) - Progress Progress: improved Progress Note: -Kidney Stone (possible due to history of kidney stones, right groin pain, dysuria, and decreased urine output) Due to the chief complaint, the following diagnoses were also considered but the signs/symptoms, physical exam, and data points are not consistent with any of the following: Appendicitis, testicular torsion, inguinal hernia, ovarian torsi on, ectopic , pelvic inflammatory disease, diverticulitis, pyelonephritis, ureteral stricture, bladder cancer, prostate cancer, prostatitis, epididymitis, orchitis, hydrocele, varicocele, femoral hernia, musculoskeletal pain, referred pain from lumbar spine. Rationale for Diagnosis and Decision Making: Given the patient's history of kidney stones, the presentation of severe right groin pain with dysuria and decreased urine output, kidney stone is the most likely diagnosis. CT scan of the abdomen/pelvis was ordered to confirm the presence and location of the stone. Flomax was prescribed to help facilitate stone passage, and anti-inflammatory medication was given for pain management. Shared decision making was used to determine the plan of care. Counseled pt/family regarding: lab results, diagnosis, need for follow-up, rad results Medical Desision Making - Diagnostic Testing Diagnostic test were ordered, analyzed, and reviewed by me: Yes Radiological Interpretation: Interpreted by me, Reviewed by me, Teleradiologist Report - Risk of complications The pt has a mod risk of morbidity or mortality based on: Need for prescription drug management - Departure Departure Disposition: Home Clinical Impression: Obstructive uropathy, Renal calculus, right, Ureteral calculus, right Condition: Good Critical Care Time: No Referrals: ANTONIA JANE MD [Primary Care Provider] - Follow up/PCP as directed Instructions: Kidney Stones (DC) Prescriptions: Hydrocodone/Acetaminophen [Hines 10-325 mg] 1 tablet PO Q4H PRN PRN 3 Days #18 tablet MDD 6 tab PRN Reason: Pain Cefdinir 300 mg PO BID 7 Days #14 cap Tamsulosin HCl 0.4 mg [Flomax 0.4 MG] 0.4 mg PO DAILY 30 Days #30 cap Ketorolac Trometh 10 mg Tab [TORAdol 10 MG TABLET] 10 mg PO TID PRN 7 Days #21 tablet PRN Reason: Pain
[2025-01-07] MEDS ORDERED: Sodium Chloride 0.9% 1000 ML 1,000 ML ONE (01:01)
[2025-01-07] MEDS ORDERED: TORAdol 30 mg Injection ONE (01:01)
[2025-01-07] MEDS ORDERED: Flomax 0.4 MG ONE (01:01)
[2025-01-07] MEDS: Flomax 0.4 MG PO STA (01:03)
[2025-01-07] MEDS: TORAdol 30 mg Injection IV STA (01:04)
[2025-01-07] MEDS: Sodium Chloride 0.9% 1000 ML 1,000 ML IV STA (01:04)
[2025-01-07 01:25] LABS: Absolute Neutrophil Ct (ANC) 6.77 x10^3/uL (1.78-5.38); BASOPHIL % 0.3 % (0.2-1.2); Basophil (Absolute #) 0.03 x10^3/uL (0.01-0.08); Eosinophil % 0.1 % (0.8-7.0); Eosinophil (Absolute #) 0.01 x10^3/uL (0.04-0.54); Hematocrit 40.3 % (40.1-51.0); IMMATURE GRAN # 0.03 x10^3u/L (0.001-0.031); IMMATURE GRAN % 0.3 % (0.001-0.429); Lymphocyte (Absolute #) 1.28 x10^3/uL (1.32-3.57); Lymphocytes % 14.8 % (21.8-53.1); Mean Cell Volume 94.6 fL (79.0-92.2); Mean Corpuscular Hemoglobin 30.5 pg (25.7-32.2); Mean Corpuscular Hgb Concent. 32.3 g/dL (32.3-36.5); Mean Platelet Volume 10.7 fL (9.4-12.4); Monocyte (Absolute #) 0.54 x10^3/uL (0.30-0.82); Monocytes % 6.2 % (5.3-12.2); Neutrophil % 78.3 % (34.0-67.9); Platelet Count 168 x10^3/uL (163-337); Red Blood Count 4.26 x10^6/uL (4.63-6.08); Red Cell Distribution Width 13.3 % (11.6-14.4); White Blood Count 8.7 x10^3/uL (4.23-9.07)
[2025-01-07 01:36] LABS: Appearance Clear (Clear); Bilirubin Negative (Negative); Blood NHT (Negative); Glucose, Urine Negative (Negative); Ketones 15 (Negative); Leukocyte Esterase Negative (Negative); Nitrite Negative (Negative); Protein,Urine Dip Trace (Negative)
[2025-01-07 01:37] LABS: Bacteria None Seen /HPF (None Seen); Epithelial Cells None Seen /HPF (None Seen); Hyaline Casts NONE SEEN /LPF (0-2); WBC 0-2 /HPF (0-5)
[2025-01-07 01:40] LABS: ALBUMIN 4.3 g/dL (3.5-5.0); BILIRUBIN,TOTAL 0.9 mg/dL (0.2-1.3); Calcium 8.8 mg/dL (8.4-10.2); Creatinine 1 1.01 mg/dL (0.66-1.25); EST GLOMERULAR FILTRATION RATE 77.1 ML/MIN; Potassium 4.9 mmol/L (3.5-5.1); Total Protein 7.1 g/dL (6.3-8.2)
[2025-01-07 02:05] VITALS: RESP 20
--- NOTE | 2025-01-07 02:54 | XRAY ---
CLINICAL HISTORY: abd pain COMPARISON: february 02/2023 20:34:30 [employer]CH[employer]: Contiguous axial images were obtained from the level of the diaphragm to the pubic symphysis without intravenous or oral contrast. Coronal and sagittal reconstructions were likewise performed and indicated to increase the sensitivity for detecting clinically relevant pathology. CT scan was performed according to ALARA (as low as reasonable achievable). FINDINGS: The visualized lung bases are clear. Evaluation of the abdominal and pelvic visceral organs is limited without intravenous contrast. The unenhanced liver, spleen, pancreas, and adrenal glands are grossly unremarkable. The gallbladder is present. The kidneys are normal in size and attenuation without obvious calcification. Few exophytic cortical cysts are noted involving bilateral kidneys. Right sided perinephric and periureteric fat stranding - suggest changes of obstructive nephropathy Right kidney shows non-obstructing calculi of size 5 mm in upper calyx 3 mm in mid calyx and 1 mm in lower calyx. Left kidney shows few 2-3 mm sized calculi in upper and lower calyx. Right kidney shows mild hydronephrosis and hydroureter up to an obstructing calculi of size 3mm, 5 mm and 4 mm involving right distal ureter. No adenopathy or fluid collections are seen. No evidence of focal or diffuse bowel wall thickening or evidence of bowel obstruction is seen. The appendix is visualized in the right lower quadrant and appears within normal limits. The aorta is normal in caliber. The urinary bladder is normal in contour. Pelvic viscera are grossly unremarkable. No aggressive appearing osseous lesions are identified. Multiple small uncomplicated sigmoid diverticulosis noted. IMPRESSION: 1. Right kidney shows non-obstructing calculi of size 5 mm in upper calyx 3 mm in mid calyx and 1 mm in lower calyx.-same. 2. Left kidney shows few 2-3 mm sized calculi in upper and lower calyx.-reduced in number. 3. Right kidney shows mild hydronephrosis and hydroureter up to an obstructing calculi of size 3mm, 5 mm and 4 mm involving right distal ureter.-new finding. 4. Right sided perinephric and periureteric fat stranding - suggest changes of obstructive nephropathy-new finding. 5. Few exophytic cortical cysts are noted involving bilateral kidneys.stable. 6. Multiple small uncomplicated sigmoid diverticulosis noted. stable. 7. Left ureteric stone is passed out. Electronically Signed by: Jaxon Reaves MD. (01/07/2025 02:49:23 EDT)
[2025-01-07 03:15] VITALS: BP 144/106; PULSE 75; O2SAT 98
== END 2025-01-07 03:25 | disposition home or self-care (01) ==
LOC: ED 00:17
DX: N13.9 Obstructive and reflux uropathy, unspecified (principal); N20.2 Calculus of kidney with calculus of ureter; R10.2 Pelvic and perineal pain; R30.0 Dysuria; E78.5 Hyperlipidemia, unspecified; I10 Essential (primary) hypertension; E11.9 Type 2 diabetes mellitus without complications; Z79.891 Long term (current) use of opiate analgesic; Z79.02 Long term (current) use of antithrombotics/antiplatelets; Z79.84 Long term (current) use of oral hypoglycemic drugs; Z79.899 Other long term (current) drug therapy; Z87.442 Personal history of urinary calculi
CPT/HCPCS: 36415; 74176; 80053; 81001; 85025; 96361; 96374; 99284; J1885; A9270-GY

== ENCOUNTER 2025-06-22 19:18 | Emergency (ER) | payer MEDICARE ==
[2025-06-22] MEDS ORDERED: TYLENOL 325 MG ONE (19:50)
[2025-06-22] MEDS ORDERED: Pepcid 20 MG VIAL IV ONE (19:50)
[2025-06-22] MEDS: Pepcid 20 MG VIAL IV ONE (19:54)
[2025-06-22] MEDS: TYLENOL 325 MG PO STA (19:55)
--- NOTE | 2025-06-22 19:57 | ERPHSYRPT ---
- History of Present Illness Time Seen by Provider: 06/22/25 19:44 Source: patient Exam Limitations: no limitations Patient Subjective Stated Complaint: c/o vomiting and adult fever Triage Nursing Assessment: patient brought to ED by grandson with c/o vomiting and fever. patient states the symptoms started 3 days ago and he started vomiting yesterday, patient is weak, brought in by wheelchair, fever of 101.1 orally upon arrival, A x Ox 3, last BM today, rates abdominal pain and a headache 5/10, patient doesn't appear to be in any distress at this time Physician History: 75-year-old male presents to the emergency room with cough congestion URI as well as abdominal discomfort diarrhea and vomiting for the past 3 days patient was prescribed Tamiflu as well as Medrol Dosepak by his family doctor via telehealth visit denies any chest pain denies any shortness of breath feels weak reports he has got a fever now in ED for further eval Timing/Duration: day(s) (3) Fever Severity: mild Associated Symptoms: abdominal pain, cough, nausea/vomiting, No chest pain, No confusion, No rash, No shortness of breath Allergies/Adverse Reactions: No Known Drug Allergies Allergy (Verified 06/22/25 19:34) Home Medications: Clopidogrel Bisulfate [Plavix] 75 mg PO DAILY 12/05/22 [History] Metformin HCl 500 mg [Glucophage 500 MG] 500 mg PO BID 12/05/22 [History] Metoprolol Tartrate 50 mg [Lopressor 50 MG] 120 mg PO BID 12/05/22 [History] Rosuvastatin Calcium 40 mg PO DAILY 12/05/22 [History] glipiZIDE [Glipizide ER] 5 mg PO DAILY 12/05/22 [History] Allopurinol 100 mg [Zyloprim 100 mg] 100 mg PO DAILY 01/07/25 [History] Ergocalciferol (Vitamin D2) [Vitamin D2] 50,000 unit PO Q7D 01/07/25 [History] Azithromycin 250 mg PO DAILY 06/22/25 [History] Fluorometholone 1 drop OP HS 06/22/25 [History] Oseltamivir 75 mg [Tamiflu 75MG Capsule] 75 mg PO BID 06/22/25 [History] methylPREDNISolone [Methylprednisolone] 4 mg PO TID 06/22/25 [History] Hx Tetanus, Diphtheria Vaccination/Date Given: Yes Hx Influenza Vaccination/Date Given: No Hx Pneumococcal Vaccination/Date Given: Yes Travel Risk - International Travel Have you traveled outside of the country in past 3 weeks: No - Emerging Infectious Disease Are you exhibiting symptoms associated with any current EIDs: Yes Symptoms: Vomitting - Review of Systems Constitutional: No Fever, No Chills Eyes: No Symptoms Ears, Nose, & Throat: Nose Congestion Respiratory: Cough, No Dyspnea Cardiac: No Chest Pain, No Edema, No Syncope Abdominal/Gastrointestinal: Abdominal Pain, Nausea, Diarrhea, No Vomiting Genitourinary Symptoms: No Dysuria Musculoskeletal: No Back Pain, No Neck Pain Skin: No Rash Neurological: No Dizziness, No Focal Weakness, No Sensory Changes Psychological: No Symptoms Endocrine: No Symptoms All Other Systems: Reviewed and Negative - Past Medical History Pertinent Past Medical History: Yes Neurological History: No Pertinent History ENT History: Cataracts Cardiac History: Coronary Artery Disease, High Cholesterol, Hypertension Respiratory History: No Pertinent History Endocrine Medical History: Diabetes Type II Musculoskeletal History: No Pertinent History GI Medical History: Hernia History: Other Psycho-Social History: No Pertinent History Male Reproductive Disorders: Other Other Medical History: previous skin cancer, kidney stones, holter monitor on - Past Surgical History Past Surgical History: Yes Neuro Surgical History: No Pertinent History Cardiac: Cardiac Catheterization, Cardiac Stent Respiratory: No Pertinent History Gastrointestinal: Hernia Repair Genitourinary: Other Musculoskeletal: Orthopedic Surgery Male Surgical History: No Pertinent History - Social History Smoking Status: Never smoker Exposure to second hand smoke: No Drug Use: none - Social Determinants of Health Will the patient participate in the screening: Yes Do you worry about a steady place to live?: No Do you have any problems with any of the following?: No known problems In the past 12 months,have you had to go without utilities?: No Transportation Issues: No Has anyone in your support network made you feel unsafe?: No Have you or anyone in your house had to go w/o enough food: No - Nursing Vital Signs Nursing Vital Signs: Initial Vital Signs Temperature 101.1 F 06/22/25 19:25 Pulse Rate 88 06/22/25 19:25 Respiratory Rate 24 06/22/25 19:25 Blood Pressure 151/102 06/22/25 19:25 O2 Sat by Pulse Oximetry 94 L 06/22/25 19:25 Pain Scale Pain Intensity 0 - Physical Exam General Appearance: mild distress (febrile), alert Eye Exam: PERRL/EOMI ENT Exam: normal ENT inspection, No pharyngeal erythema, No tonsillar exudate Neck Exam: supple, full range of motion, No meningismus Respiratory Exam: normal breath sounds, lungs clear, decreased breath sounds (at the bases) Cardiovascular/Chest Exam: normal heart sounds, regular rate/rhythm, No murmur, No edema Gastrointestinal/Abdominal Exam: soft, non tender, no distention Extremity Exam: non-tender, normal range of motion, normal inspection, normal capillary refill Neurologic Exam: alert, oriented x 3, cooperative, aquatics specialist II-XII nml as tested, normal mood/affect, sensation nml, No motor deficits Skin Exam: normal color, warm, dry, No rash SpO2: 93 - Course Nursing assessment & vital signs reviewed: Yes EKG Interpreted by Me: RATE (86), Sinus Rhythm, LAFB, Non-specific ST Changes, Other (PACS, no STEMI) Ordered Tests: Active Orders 24 hr Category Date Time Status Supervisor Carbon Electrodes STAT Care 06/22/25 19:44 Active EKG-ER Only STAT Care 06/22/25 19:44 Active IV Insertion STAT Care 06/22/25 19:44 Active Pulse Oximetry (ED) STAT Care 06/22/25 19:44 Active Pulse Oximetry (ED) STAT Care 06/22/25 19:44 Completed CHEST 2 VIEWS (PA AND LAT) Stat Exams 06/22/25 19:45 Taken BLOOD CULTURE Stat Lab 06/22/25 19:59 Received CBC W DIFF Stat Lab 06/22/25 19:59 Completed CMP Stat Lab 06/22/25 19:59 Completed CULTURE,URINE Stat Lab 06/22/25 20:22 Received Lactic Acid Stat Lab 06/22/25 19:50 Completed PROCALCITONIN Stat Lab 06/22/25 19:59 Completed PROTIME WITH INR Stat Lab 06/22/25 19:59 Completed PTT Stat Lab 06/22/25 19:59 Completed UA W/RFX UR CULTURE Stat Lab 06/22/25 20:22 Completed Incentive Spirometry STAT RT 06/22/25 20:52 Active Respiratory Therapy Assessment DAILY RT 06/22/25 21:19 Active Medication Summary Discontinued Medications Generic Name Dose Route Start Last Admin Trade Name Freq PRN Reason Stop Dose Admin Acetaminophen 975 mg 06/22/25 19:44 06/22/25 19:55 Acetaminophen 325 Mg Tablet PO 06/22/25 19:45 975 mg STAT STA Administration Acetaminophen Confirm 06/22/25 19:50 Acetaminophen 325 Mg Tablet Administered 06/22/25 19:51 Dose 975 mg .ROUTE .STK-MED ONE Albuterol Sulfate 2.5 mg 06/22/25 20:52 06/22/25 21:05 Albuterol Sulfate 2.5 Mg/3 Ml Neb IH 06/22/25 20:53 2.5 mg STAT ONE Administration Albuterol Sulfate Confirm 06/22/25 21:01 Albuterol Sulfate 2.5 Mg/3 Ml Neb Administered 06/22/25 21:02 Dose 2.5 mg IH .STK-MED ONE Azithromycin 500 mg 06/22/25 20:49 06/22/25 21:04 Azithromycin 250 Mg Tablet PO 06/22/25 20:50 Not Given STAT ONE Azithromycin Confirm 06/22/25 20:52 Azithromycin 250 Mg Tablet Administered 06/22/25 20:53 Dose 500 mg .ROUTE .STK-MED ONE Azithromycin 250 mg 06/22/25 21:03 06/22/25 21:04 Azithromycin 250 Mg Tablet PO 06/22/25 21:04 250 mg DAILY STA Administration Famotidine 20 mg 06/22/25 19:46 06/22/25 19:54 Famotidine 20 Mg/1 Vial IV 06/22/25 19:47 20 mg STAT ONE Administration Famotidine Confirm 06/22/25 19:50 Famotidine 20 Mg/1 Vial Administered 06/22/25 19:51 Dose 20 mg IV .STK-MED ONE Sodium Chloride 1,000 mls @ 999 mls/hr 06/22/25 19:44 06/22/25 21:09 Sodium Chloride 0.9% 1000 Ml IV 06/22/25 20:44 Infused .Q1H1M STA Infusion Sodium Chloride Confirm 06/22/25 19:51 Sodium Chloride 0.9% 1000 Ml Administered 06/22/25 19:52 Dose 1,000 mls @ ud .ROUTE .STK-MED ONE Ceftriaxone Sodium 1 gm in 100 mls @ 200 mls/hr 06/22/25 20:48 06/22/25 21:24 Rocephin 1 Gm / 100 Ml Nacl IV 06/22/25 21:17 Infused STAT ONE Infusion Ceftriaxone Sodium Confirm 06/22/25 20:53 Rocephin 1 Gm / 100 Ml Nacl Administered 06/22/25 20:54 Dose 1 gm in 100 mls @ ud IV .STK-MED ONE Lab/Rad Data: Laboratory Result Diagrams 06/22/25 19:59 06/22/25 19:59 Laboratory Results 06/22/25 06/22/25 06/22/25 Range/Units 20:32 20:22 19:59 WBC (4.23-9.07) x10^3/uL RBC (4.63-6.08) x10^6/uL Hgb (13.7-17.5) g/dL Hct (40.1-51.0) % MCV (79.0-92.2) fL MCH (25.7-32.2) pg MCHC (32.3-36.5) g/dL RDW (11.6-14.4) % Plt Count (163-337) x10^3/uL MPV (9.4-12.4) fL Gran % (34.0-67.9) % Immature Gran % (Auto) (0.001-0.429) % Nucleat RBC Rel Count (0.00-0.2) % Eos # (Auto) (0.04-0.54) x10^3/uL Immature Gran # (Auto) (0.001-0.031) x10^3u/L Absolute Lymphs (auto) (1.32-3.57) x10^3/uL Absolute Monos (auto) (0.30-0.82) x10^3/uL Absolute Nucleated RBC (0.00-0.012) x10^3u/L Lymphocytes % (21.8-53.1) % Monocytes % (5.3-12.2) % Eosinophils % (0.8-7.0) % Basophils % (0.2-1.2) % Absolute Granulocytes (1.78-5.38) x10^3/uL Basophils # (0.01-0.08) x10^3/uL PT (9.4-12.5) SECONDS INR (0.8-3.0) APTT (25.1-36.5) SECONDS Sodium (135-145) mmol/L Potassium (3.5-5.1) mmol/L Chloride (98-107) mmol/L Carbon Dioxide (22-30) mmol/L Anion Gap (5-15) MEQ/L BUN (9-20) mg/dL Creatinine (0.66-1.25) mg/dL Estimated GFR ML/MIN Glucose (74-106) mg/dL Lactic Acid (0.4-2.0) Calcium (8.4-10.2) mg/dL Total Bilirubin (0.2-1.3) mg/dL AST (17-59) U/L ALT (0-50) U/L Alkaline Phosphatase (38-126) U/L Serum Total Protein (6.3-8.2) g/dL Albumin (3.5-5.0) g/dL Procalcitonin (0.030-0.080) ng/mL Urine Color Dark Yellow (Yellow) Urine Appearance Clear (Clear) Urine pH 5.0 (4.6-8.0) Ur Specific [place] 1.025 (1.005-1.030) Urine Protein 100 A (Negative) Urine Glucose (UA) Negative (Negative) mg/dL Urine Ketones Negative (Negative) Urine Blood Moderate A (Negative) Urine Nitrite Negative (Negative) Urine Bilirubin Negative (Negative) Urine Urobilinogen 1.0 A (0.2) mg/dL Ur Leukocyte Esterase Negative (Negative) U Hyaline Cast (Auto) 3-5 A (0-2) /LPF Urine Microscopic RBC 51-100 A (0-5) /HPF Urine Microscopic WBC 0-2 (0-5) /HPF Ur Epithelial Cells Rare (None Seen) /HPF Urine Bacteria None Seen (None Seen) /HPF Urine Culture Reflexed YES (NO) Influenza Type A Ag NEGATIVE (NEGATIVE) Influenza Type B Ag NEGATIVE (NEGATIVE) RSV (PCR) NEGATIVE (NEGATIVE) SARS-CoV-2 (PCR) NEGATIVE (NEGATIVE) Group A Strep Antibody NOT DETECTED (NEGATIVE) 06/22/25 06/22/25 06/22/25 Range/Units 19:59 19:59 19:59 WBC (4.23-9.07) x10^3/uL RBC (4.63-6.08) x10^6/uL Hgb (13.7-17.5) g/dL Hct (40.1-51.0) % MCV (79.0-92.2) fL MCH (25.7-32.2) pg MCHC (32.3-36.5) g/dL RDW (11.6-14.4) % Plt Count (163-337) x10^3/uL MPV (9.4-12.4) fL Gran % (34.0-67.9) % Immature Gran % (Auto) (0.001-0.429) % Nucleat RBC Rel Count (0.00-0.2) % Eos # (Auto) (0.04-0.54) x10^3/uL Immature Gran # (Auto) (0.001-0.031) x10^3u/L Absolute Lymphs (auto) (1.32-3.57) x10^3/uL Absolute Monos (auto) (0.30-0.82) x10^3/uL Absolute Nucleated RBC (0.00-0.012) x10^3u/L Lymphocytes % (21.8-53.1) % Monocytes % (5.3-12.2) % Eosinophils % (0.8-7.0) % Basophils % (0.2-1.2) % Absolute Granulocytes (1.78-5.38) x10^3/uL Basophils # (0.01-0.08) x10^3/uL PT 10.8 (9.4-12.5) SECONDS INR 0.99 (0.8-3.0) APTT 24.6 L (25.1-36.5) SECONDS Sodium 131 L (135-145) mmol/L Potassium 4.3 (3.5-5.1) mmol/L Chloride 98 (98-107) mmol/L Carbon Dioxide 22 (22-30) mmol/L Anion Gap 16.1 H (5-15) MEQ/L BUN 20 (9-20) mg/dL Creatinine 1.09 (0.66-1.25) mg/dL Estimated GFR 69.9 ML/MIN Glucose 140 H (74-106) mg/dL Lactic Acid (0.4-2.0) Calcium 9.1 (8.4-10.2) mg/dL Total Bilirubin 1.20 (0.2-1.3) mg/dL AST 63 H (17-59) U/L ALT 37 (0-50) U/L Alkaline Phosphatase 66 (38-126) U/L Serum Total Protein 7.6 (6.3-8.2) g/dL Albumin 4.3 (3.5-5.0) g/dL Procalcitonin 0.370 H (0.030-0.080) ng/mL Urine Color (Yellow) Urine Appearance (Clear) Urine pH (4.6-8.0) Ur Specific [place] (1.005-1.030) Urine Protein (Negative) Urine Glucose (UA) (Negative) mg/dL Urine Ketones (Negative) Urine Blood (Negative) Urine Nitrite (Negative) Urine Bilirubin (Negative) Urine Urobilinogen (0.2) mg/dL Ur Leukocyte Esterase (Negative) U Hyaline Cast (Auto) (0-2) /LPF Urine Microscopic RBC (0-5) /HPF Urine Microscopic WBC (0-5) /HPF Ur Epithelial Cells (None Seen) /HPF Urine Bacteria (None Seen) /HPF Urine Culture Reflexed (NO) Influenza Type A Ag (NEGATIVE) Influenza Type B Ag (NEGATIVE) RSV (PCR) (NEGATIVE) SARS-CoV-2 (PCR) (NEGATIVE) Group A Strep Antibody (NEGATIVE) 06/22/25 06/22/25 Range/Units 19:59 19:50 WBC 4.8 (4.23-9.07) x10^3/uL RBC 4.67 (4.63-6.08) x10^6/uL Hgb 14.1 (13.7-17.5) g/dL Hct 43.3 (40.1-51.0) % MCV 92.7 H (79.0-92.2) fL MCH 30.2 (25.7-32.2) pg MCHC 32.6 (32.3-36.5) g/dL RDW 13.5 (11.6-14.4) % Plt Count 127 L (163-337) x10^3/uL MPV 9.9 (9.4-12.4) fL Gran % 82.0 H (34.0-67.9) % Immature Gran % (Auto) 0.4 (0.001-0.429) % Nucleat RBC Rel Count 0.0 (0.00-0.2) % Eos # (Auto) 0 L (0.04-0.54) x10^3/uL Immature Gran # (Auto) 0.02 (0.001-0.031) x10^3u/L Absolute Lymphs (auto) 0.59 L (1.32-3.57) x10^3/uL Absolute Monos (auto) 0.24 L (0.30-0.82) x10^3/uL Absolute Nucleated RBC 0.00 (0.00-0.012) x10^3u/L Lymphocytes % 12.2 L (21.8-53.1) % Monocytes % 5.0 L (5.3-12.2) % Eosinophils % 0.0 L (0.8-7.0) % Basophils % 0.4 (0.2-1.2) % Absolute Granulocytes 3.97 (1.78-5.38) x10^3/uL Basophils # 0.02 (0.01-0.08) x10^3/uL PT (9.4-12.5) SECONDS INR (0.8-3.0) APTT (25.1-36.5) SECONDS Sodium (135-145) mmol/L Potassium (3.5-5.1) mmol/L Chloride (98-107) mmol/L Carbon Dioxide (22-30) mmol/L Anion Gap (5-15) MEQ/L BUN (9-20) mg/dL Creatinine (0.66-1.25) mg/dL Estimated GFR ML/MIN Glucose (74-106) mg/dL Lactic Acid 1.6 (0.4-2.0) Calcium (8.4-10.2) mg/dL Total Bilirubin (0.2-1.3) mg/dL AST (17-59) U/L ALT (0-50) U/L Alkaline Phosphatase (38-126) U/L Serum Total Protein (6.3-8.2) g/dL Albumin (3.5-5.0) g/dL Procalcitonin (0.030-0.080) ng/mL Urine Color (Yellow) Urine Appearance (Clear) Urine pH (4.6-8.0) Ur Specific [place] (1.005-1.030) Urine Protein (Negative) Urine Glucose (UA) (Negative) mg/dL Urine Ketones (Negative) Urine Blood (Negative) Urine Nitrite (Negative) Urine Bilirubin (Negative) Urine Urobilinogen (0.2) mg/dL Ur Leukocyte Esterase (Negative) U Hyaline Cast (Auto) (0-2) /LPF Urine Microscopic RBC (0-5) /HPF Urine Microscopic WBC (0-5) /HPF Ur Epithelial Cells (None Seen) /HPF Urine Bacteria (None Seen) /HPF Urine Culture Reflexed (NO) Influenza Type A Ag (NEGATIVE) Influenza Type B Ag (NEGATIVE) RSV (PCR) (NEGATIVE) SARS-CoV-2 (PCR) (NEGATIVE) Group A Strep Antibody (NEGATIVE) - Progress Progress Note: 06/22/25 21:48 Patient feels better after the breathing treatments patient sats are 95% on room air patient has pneumonia patient already has azithromycin at home has 2 more doses patient was given a gram of Rocephin in the ED will be discharged home with cefdinir 300 mg twice a day for 10 days recommended to watch his O2 and to return immediately for any new or worsening symptoms patient expressed understand the treatment plan daughter is at bedside - Departure Departure Disposition: Home Clinical Impression: PNA (pneumonia) Qualifiers: Pneumonia type: due to unspecified organism Laterality: unspecified laterality Lung location: unspecified part of lung Qualified Code(s): J18.9 - Pneumonia, unspecified organism Condition: Stable Critical Care Time: No Referrals: ANTONIA JANE [Primary Care Provider, [facility]] - Follow up/PCP as directed Instructions: Pneumonia, Adult (DC) Prescriptions: Albuterol Sulfate [Albuterol Sulfate Hfa] 8.5 gm IH Q6HPRN PRN #1 inhaler PRN Reason: Shortness Of Breath/Wheezing Cefdinir 300 mg [Omnicef 300 mg] 300 mg PO BID 10 Days #20 cap
[2025-06-22 20:04] LABS: BASOPHIL % 0.4 % (0.2-1.2); Basophil (Absolute #) 0.02 x10^3/uL (0.01-0.08); Eosinophil (Absolute #) 0 x10^3/uL (0.04-0.54); Hematocrit 43.3 % (40.1-51.0); Hemoglobin 14.1 g/dL (13.7-17.5); IMMATURE GRAN # 0.02 x10^3u/L (0.001-0.031); IMMATURE GRAN % 0.4 % (0.001-0.429); Lymphocyte (Absolute #) 0.59 x10^3/uL (1.32-3.57); Mean Corpuscular Hemoglobin 30.2 pg (25.7-32.2); Mean Corpuscular Hgb Concent. 32.6 g/dL (32.3-36.5); Monocyte (Absolute #) 0.24 x10^3/uL (0.30-0.82); NUCLEATED RBC # 0.00 x10^3u/L (0.00-0.012); NUCLEATED RBC % 0.0 % (0.00-0.2); Platelet Count 127 x10^3/uL (163-337); Red Blood Count 4.67 x10^6/uL (4.63-6.08); White Blood Count 4.8 x10^3/uL (4.23-9.07)
[2025-06-22 20:16] LABS: Calcium 9.1 mg/dL (8.4-10.2); Carbon Dioxide 22.0 mmol/L (22-30); Creatinine 1 1.09 mg/dL (0.66-1.25); EST GLOMERULAR FILTRATION RATE 69.9 ML/MIN; Glucose 140.0 mg/dL (74-106); Potassium 4.3 mmol/L (3.5-5.1); SGOT/AST 63.0 U/L (17-59); SGPT/ALT 37.0 U/L (0-50); Total Protein 7.6 g/dL (6.3-8.2)
[2025-06-22 20:18] LABS: INR 0.99 (0.8-3.0); PROTIME 10.8 SECONDS (9.4-12.5); PTT 24.6 SECONDS (25.1-36.5)
[2025-06-22 20:22] VITALS: BP 136/89
[2025-06-22 20:33] LABS: Glucose, Urine Negative (Negative); Protein,Urine Dip 100 (Negative); RBC 51-100 /HPF (0-5); WBC 0-2 /HPF (0-5)
[2025-06-22 20:40] LABS: INFLUENZA A NEGATIVE (NEGATIVE); INFLUENZA B NEGATIVE (NEGATIVE); RESPIRATORY SYNCTIAL VIRUS NEGATIVE (NEGATIVE); SARS-CoV-2 Xpert Express NEGATIVE (NEGATIVE)
[2025-06-22] MEDS ORDERED: Zithromax 250 MG TABLET ONE (20:52)
[2025-06-22] MEDS ORDERED: ROCEPHIN 1 GM / 100 ML NaCl 1 GM/100 ML IVPB IV ONE (20:53)
[2025-06-22] MEDS: ROCEPHIN 1 GM / 100 ML NaCl 1 GM/100 ML IVPB IV ONE (20:54)
[2025-06-22 20:55] VITALS: TEMP 99.6
[2025-06-22] MEDS ORDERED: PROVENTIL 2.5 MG/3 ML NEB IH ONE (21:01)
[2025-06-22] MEDS: Zithromax 250 MG TABLET PO ONE (21:04)
[2025-06-22] MEDS: Zithromax 250 MG TABLET PO STA (21:04)
[2025-06-22] MEDS: PROVENTIL 2.5 MG/3 ML NEB IH ONE (21:05)
[2025-06-22 22:30] VITALS: PULSE 88; RESP 18; O2SAT 94
--- NOTE | 2025-06-23 08:15 | XRAY ---
Indication: Fever. Cough. Comparison: None PA/lateral chest hyperinflated with minimal right suprahilar subsegmental atelectasis/scarring. No focal infiltrate, consolidation, or large effusion. Heart not enlarged with tortuous descending aorta. Bony thorax intact with osteopenia, mild degenerative changes, and anterior chest electronic device. Impression: Nonacute hyperinflated chest with chronic features.
== END 2025-06-22 22:30 | disposition home or self-care (01) ==
LOC: ED 19:18
DX: J18.9 Pneumonia, unspecified organism (principal); R05.1 Acute cough; R10.9 Unspecified abdominal pain; R19.7 Diarrhea, unspecified; R11.2 Nausea with vomiting, unspecified; I10 Essential (primary) hypertension; E11.9 Type 2 diabetes mellitus without complications; Z79.02 Long term (current) use of antithrombotics/antiplatelets; Z79.84 Long term (current) use of oral hypoglycemic drugs; Z79.52 Long term (current) use of systemic steroids; Z79.899 Other long term (current) drug therapy

== ENCOUNTER 2025-07-30 08:58 | Day surgery (SDC) | payer MEDICARE ==
--- NOTE | 2025-07-30 07:49 | HP ---
HISTORY OF PRESENT ILLNESS: Patient is a 75-year-old, has some dysphagia of lower esophagus, has odynophagia a day or two after transient blocking. The last upper endoscopy was several years ago. 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 PAST SURGICAL HISTORY: He had a hernia repair 20 years ago, I am not sure who did it. He had tonsillectomy in the past and cataract removal in the past. He had a wrist fracture with a pin in the past. FAMILY HISTORY: Negative in regard to this problem. SOCIAL HISTORY: No smoking. No alcohol abuse. MEDICATIONS: Zantac, ezetimibe, tamsulosin, clopidogrel, metformin, rosuvastatin, metoprolol. ALLERGIES: No known drug allergies. REVIEW OF SYSTEMS: Twelve systems reviewed. Pertinent for multiple medical problems noted above. No chest pain or palpitations. PHYSICAL EXAMINATION: GENERAL: No acute distress. VITAL SIGNS: Height 5 feet 2 inches. BMI 27. HEENT: Sclerae nonicteric. NECK: No JVD. CHEST: Equal excursion. Nonlabored breathing. CARDIOVASCULAR: Regular rate and rhythm. ABDOMEN: Soft. EXTREMITIES: No cyanosis or edema. NEUROLOGIC: Alert and oriented. Moving all extremities symmetrically. PSYCHIATRIC: Appropriate mood and affect. SKIN: Dry. IMPRESSION: Dysphagia of lower esophagus, odynophagia. EGD with possible biopsy, possible dilatation. He was shown the risk sheet. Explained the procedure in detail including but not limited to bleeding or infection; risk of bowel injury or perforation; possibly requiring open procedure or transfer for stent placement; general risk of anesthesia, DVT, PE, pneumonia; risk of aches, pains; possible no improvement in swallowing; possible requiring other procedures, dilators or referrals; risk of possible no narrowing with dilator; possible neurologic or functional problem that dilatation may not benefit. If dilatation performed and improved swallowing, it may need to be repeated again down the road. Patient understands all the above as well as possible no improvement. He agrees to proceed. We will proceed with outpatient under MAC anesthesia, EGD with possible biopsy, possible dilatation as an outpatient. Otherwise, continue medications for hypertension, diabetes, hyperlipidemia, reflux, and peripheral vascular disease.
[2025-07-30] MEDS: Lactated Ringers 1,000 ML IV SCH (09:11)
[2025-07-30 09:38] LABS: ISTAT BUN 16 mg/dL (8-26); ISTAT CL 104 mmol/L (98-109); ISTAT CO2 25 mmol/L (24-29); ISTAT CREA 1.1 mg/dL (0.6-1.3); ISTAT GLUC 135 mg/dL (70-105); ISTAT K 4.4 mmol/L (3.5-4.9); ISTAT NA 140 mmol/L (138-146); ISTAT iCA 1.19 mmol/L (1.12-1.32)
[2025-07-30] MEDS ORDERED: Xylocaine-Mpf 2% 5 Ml Vial ONE (11:16)
[2025-07-30] MEDS ORDERED: propofoL IV ONE (11:16)
[2025-07-30 12:02] VITALS: PULSE 61; RESP 16
[2025-07-30 12:11] VITALS: BP 132/87; TEMP 96.7; O2SAT 97
--- NOTE | 2025-07-31 10:58 | OP ---
SURGERY DATE/TIME: 07/30/2025 [id number] PREOPERATIVE DIAGNOSES: 1) Prior history of hiatal hernia repair 20 years or so ago. 2) Dysphagia lower esophagus, odynophagia. POSTOPERATIVE DIAGNOSES: 1) Distal esophageal narrowing and spasm. 2) Tertiary contractions distal esophagus. 3) Mild gastritis. 4) Small duodenal bulb ulcer. PROCEDURE: 1) Esophagogastroduodenoscopy, cold biopsy of antrum for H. pylori, cold biopsy distal esophagus to evaluate some mild inflammation. 2) Distal esophageal balloon dilatation (size 20 balloon). SURGEON: Sagar Curran MD ANESTHESIA: MAC. ESTIMATED BLOOD LOSS: Minimal. INDICATIONS: Consent obtained. DESCRIPTION OF PROCEDURE AND FINDINGS: Patient was taken to the endoscopy room. MAC anesthesia induced. After official time-out and no disagreement in planned procedure, bite block positioned. Videogastroscope passed down the esophagus. He had some distal esophageal narrowing and spasm. Given that he was having symptoms there, it was felt it worthwhile to try balloon dilatation. There was no evidence of any david mass. The Z line was fairly crisp. At the GE junction, no signs of any obvious erosions. No signs of any gross Roach's. No signs of any obvious masses but he did have mild distal esophageal narrowing and spasm. He is having symptoms. It was felt this would benefit from dilatation at the end. Scope was passed back down through the patent pylorus to the junction of third and fourth portion of duodenum. Duodenum second and third portion were unremarkable. The duodenal bulb had a small ulcer, shallow ulcer. Picture was taken. Scope pulled back in the stomach. Mild gastritis and gastric erythema. Cold biopsy was taken for H. pylori. On retroflexion, patient's prior wrap seemed to be intact. Scope was straightened. GE junction about 40 cm. Again distal esophagus narrowing and spasm. There were no signs of any obvious masses or Roach's. Random cold biopsy taken of the distal esophagus. Mucosa looked fairly normal, but to evaluate for some microscopic inflammation, cold biopsy taken. Good hemostasis noted. Otherwise, remainder of esophagus grossly unremarkable mucosal-esqueda. He did have tertiary contractions of the distal esophagus. Otherwise, scope was passed back down through the narrowed spasm area into the stomach. A 20 balloon catheter was carefully inserted then pulled back up to the distal narrow area and spasm area where it was carefully inflated first stage for 20 or 30 seconds, second stage 20 or 30 seconds, final stage size 20 balloon dilator, balloon was left inflated for about a couple of minutes and then decompressed. The area was reevaluated. It seemed to be a little bit more widely patent. There were no signs of any full-thickness issues or injury secondary to dilatation. The balloon catheter was then withdrawn. The scope was withdrawn. Patient tolerated the procedure well. Findings discussed with family in the waiting area. Because he had the duodenal ulcer, he will need to continue acid blockers. Will talk to him when he comes back to the office.
== END 2025-07-30 12:24 | disposition home or self-care (01) ==
LOC: SDC 08:58
PROVIDERS: ATTEND Surgery
DX: K29.70 Gastritis, unspecified, without bleeding (principal); R13.10 Dysphagia, unspecified; I10 Essential (primary) hypertension; Z87.19 Personal history of other diseases of the digestive system; K22.2 Esophageal obstruction; K22.4 Dyskinesia of esophagus; K25.9 Gastric ulcer, unspecified as acute or chronic, without hemorrhage or perforation